=== PATIENT | female | born 1950 ===

== ENCOUNTER 2016-05-22 09:45 | Outpatient (CLI) | payer OTHER ==
--- NOTE | 2016-05-22 10:49 | Ultrasound Report ---
TRANSABDOMINAL AND TRANSVAGINAL PELVIC ULTRASOUND: 05/22/16 09:45:00 CLINICAL: Pelvic pain. FINDINGS: Transabdominal and transvaginal pelvic ultrasound demonstrated a normal postmenopausal uterus measuring 7.6 x 1.9x 3.7 cm. Normal uterine contour and echogenicity. The endometrium is normal and measures 1.4 mm AP thickness. A right ovary was not identified. The left ovary is normal in measures 1.8 x 1.0 x 1.5cm. No adnexal mass. No free fluid. Normal urinary bladder. IMPRESSION: Normal uterus and left ovary. No right ovary identified. No explanation for pelvic pain.
== END 2016-05-22 09:46 | disposition home or self-care (01) ==
LOC: SPVWC 09:45
PROVIDERS: ATTEND Family Medicine
DX: R10.2 Pelvic and perineal pain (principal); Z78.0 Asymptomatic menopausal state
CPT/HCPCS: 76830; 76856